=== PATIENT | male | born 1935 | race Caucasian/White ===

== ENCOUNTER → 2017-06-03 | Outpatient (CLI) | payer BC ==
[~2017-06-03] MED LIST: ASPEC81 PO; ATOR10TA88 PO; PARLODEL PO
--- NOTE | 2017-06-04 05:39 | PAP/PSG TECHNICIAN REPORT ---
[facility] Wood Milling Machine Tender Polysomnogram Report Study name: None Report date: 06/04/2017 Study date: 06/03/2017 Referring Physician: Barb Dan PA-C Name: ELZBIETA LIN Interpreting Physician: Ronni Braga D.O. Date of : 1935 Wood Milling Machine Tender: MELISSA Heredia. Sex: Male Age: 82 StudyType: PSG PAP Weight: 213 lbs Height: 82 years, Height 5' 10" Neck Circum:17inches BMI: 30.56 Medications: Ocuvite, ASA 81mg, Atorvastatin Calcium 10mg, Coenzyme Q-10 100mg, Viagra 50mg, Desonide ointment, Nasal cpap 5cm H2O, Naproxen Sodium 220mg, Bromocriptine Mesylate 2.5mg Patient History Study started on room air with 4cwp cpap in room #6. 82 yr old male here tonight for a titration study. He has been on cpap at a setting of 5 for at least 20 years. He uses it faithfully for 8 hours per night. His does not note any snoring or apnea. He is here to check his settings and to see how his oxygen saturation levels are. His ESS=9/24. His neck circ=17inches. Parameters Monitored NPSG: E1-M2, E2-M1, Fp1-M2, Fp2-M1, F3-M2, F4-M2, F4-M1, C3-M2, C4-M2, C4-M1, O1-M2, O2-M2, O2-M1, T3-M2, T4-M1, P3-M2, P4-M1, CHIN1, CHIN2, HR, EKG, Legs, PFLOW, SNOR, FLOW, CFLOW, Tidal Volume, THOR, ABDO, SpO2, PLTH, CPRESS, ETCO2 Wave, ETCO2, pH Sleep Architecture Sleep Stages Time at Lights Off 11:03:47 PM STAGES Time (min.) TST (%) Time at Lights On 5:28:47 AM Wake 62.0 -- Total Recording Time (TRT) 385.00 min. N1 23.5 7 Total Sleep Period (TSP) 369.0 min. N2 229.0 71 Total Sleep Time (TST) 323.0min. N3 20.0 6 Awake Time 62.0 min. REM 50.5 16 Wake after Sleep Onset 46.0 min. Sleep Efficiency (SE) 84 % Sleep Onset Latency (RASTA) 16.0 min. Number of Stage 1 Shifts None Awakenings 19 Stage Changes 106 Number of REM periods 10 REM 50.5 16 REM Latency 59.0 min. NREM 272.5 84 Body Position Analysis Supine Right Left Side Prone Vertical Total Sleep Time (min.) 38.7 224.5 80.0 304.50 0.0 0.0 Total Sleep Time (%) 6% 70% 25% 94 0% N/A% Total Sleep Time REM (min.) 0.0 47.5 3.0 None 0.0 0.0 Total Sleep Time NREM (min.) 18.5 177.0 77.0 None 0.0 0.0 Intermittent Wake (min.) 20.2 22.0 19.8 None 0.0 0.0 Total Sleep Period (%) 8% None None None None None Arousals Myoclonus (PLM) * Events Count Index Events Count Index Spontaneous 17 3 Events Awake (PLMW) 108 104.5 Respiratory 1 0.2 Events Asleep w/ Arousal (PLMA) 23 4.3 PLM 22 4 Events Asleep w/o Arousal (PLMS) 374 69.5 Snoring 1 0 Total Asleep 397 73.7 Total 41 8 Total 505 79 Respiratory Analysis * CA OA MA CH H RERA Total Count 0 0 0 0 3 0 3 Index 0.0 0.0 0.0 0 0.6 0 0.6 Mean Duration 0.0 0.0 0.0 0.00 30.0 0.0 30.0 Longest Duration 0.0 0.0 0.0 0.00 0.0 0.0 37.8 Respiratory Event Summary Total Supine ~Supine Right Left Prone REM NREM Apneas Count 0 0 0 0 0 N/A 0 0 Index 0.0 0 0 0.0 0.0 N/A 0 0 Hypopneas (4% Desat) Count 3 1 2 2 0 N/A 1 2 Index 0.6 3.2 0 0.5 0.0 N/A 1.2 0.4 Apneas & All Hypopneas Count 3 1 2 2 0 N/A 1 2 Index 0.6 3 0 1 0 N/A 1.2 0.4 Respiratory Events (Decision Science Analyst+All Hyp+RERA) Count 3 1 2 2 0 N/A 1 2 Index 0.6 3 0 0.5 0.0 N/A 1.2 0.4 Respiratory Related Arousal Count 1 1 0 0 0 N/A 0 1 Index 0.2 3 0 0 0 N/A 0 0 Snoring Analysis Supine Right Left Prone REM NREM Total Snore duration 1.0 min Snores count 4 17 2 N/A 0 23 23 Snore mean duration 2.6 Sec Snores index 13 5 2 N/A 0.0 5.1 4.3 TST with snoring (%) 0.3% Desaturation Event Summary: Minimum %SpO2 Event Count Mean/Min/Max Duration(sec.) Desaturation Index % Time In Bed > 90 21 37.5 / 12.3 / 60.0 3.3 99.5 86 - 90 1 12.3 / 12.3 / 12.3 28.8 0.5 81 - 85 0 N/A 0.0 0.0 76 - 80 0 N/A 0.0 0.0 71 - 75 0 N/A 0.0 0.0 66 - 70 0 N/A 0.0 0.0 61 - 65 0 N/A 0.0 0.0 56 - 60 0 N/A 0.0 0.0 51 - 55 0 N/A 0.0 0.0 < 50 0 N/A 0.0 0.0 Total REM NREM Awake <50% 0.0 min. 0.0 min. 0.0 min. 0.0 min. 51 - 60% 0.0 min. 0.0 min. 0.0 min. 0.0 min. 61 - 70% 0.0 min. 0.0 min. 0.0 min. 0.0 min. 71 - 80% 0.0 min. 0.0 min. 0.0 min. 0.0 min. 81 - 90% 2.1 min. 0.4 min. 0.7 min. 1.1 min. 91 - 100% 382.8 min. 50.1 min. 271.9 min. 60.8 min. Average 94 93 93 95 Minimum SpO2 89 89 89 89 Desaturation Event Index 3.3 4.8 1.5 9.7 # Desat. Events below 89% N/A N/A N/A N/A Time(%) with Saturation below 89% 0.0 0.0 0.0 0.0 Time(min.) with Saturation below 89% 0.0 0.0 0.0 0.0 Time (mins) REM (mins) NREM (mins) % of TST SpO2 Below 90% 4 1 N3 0.1 SpO2 Below 88% 0 0 0 0 Heart Rate Analysis Min (bpm) Max (bpm) Average (bpm) Awake 49 75 59 NREM 50 71 55 REM 49 64 56 Overall 49 71 55 Supplemental O2 Values Minimum O2 level: None Value Start Time End Time Wood Milling Machine Tender Comments Mr. Lin slept in the left and supine positions. No cardiac arrhythmia noted. Some leg movements were noted. No bruxism noted. CPAP was initiated at +4 CMH2O and up-titrated to an optimal level of +5 CMH2O, which nearly eliminated all respiratory events and snoring. His own Rodriguez FX nasal cushion system by [employer] was used during titration. He did not use the restroom during the night. He stated that he slept about the same as when at home. The final report will be interpreted and signed by a sleep physician. The completed physician report will then be placed in the patient medical record. Therapy Event: Therapy (cm H20) 4 5 Total Time at Pressure (min.) 305.0 80.0 TST at Pressure (min.) 256.0 67.0 # Periods 1 1 Sleep Onset (min.) 16.0 0.0 REM Onset (min.) 75.0 0.0 Sleep Efficiency % 83 83 Wakefulness (%) 16.1 16.2 Wakefulness (min.) 49.0 13.0 NREM 1 (%) 5.6 8.1 NREM 1 (min.) 17.0 6.5 NREM 2 (%) 56.6 70.6 NREM 2 (min.) 172.5 56.5 NREM 3 (%) 6.6 0.0 NREM 3 (min.) 20.0 0.0 REM (%) 15.2 5.0 REM (min.) 46.5 4.0 # Arousals 32 9 Arousal Index 7.5 8.1 # Snore 19 4 Snore Index 4.5 3.6 AHI 0.7 0.0 AHI Supine 7.1 0.0 AHI Non-Supine 0.5 0.0 NREM AHI 0.6 0.0 REM AHI 1.3 0.0 RDI 0.7 0.0 # Obstructive 0 0 # Central Ap 0 0 # Mixed 0 0 # Hypopneas 3 0 RERAS 0 0 Total Respiratory Events 3 0 Time Below SpO2 89.00% (min.) 0.0 0.0 Mean NREM SpO2 (%) 94 93 Mean REM SpO2 (%) 93 94 Mean Sleep SpO2 (%) 94 93 Min NREM SpO2 (%) 90 89 Min REM SpO2 (%) 89 91 Position Supine (min.) 8.5 10.0 Position Non-supine (min.) 247.5 57.0 LM Index Sleep 80.9 46.5 LM Index NREM 89.4 48.6 LM Index REM 42.6 14.8 Mean Heart Rate (bpm) 56 52 Min Heart Rate (bpm) 49 50
--- NOTE | 2017-06-09 12:53 | Sleep Study ---
Sleep Study Report Date of Service: 06/03/2017 Sleep Study Report Clinical data: Patient is an 82-year-old male who has a BMI of 30.56. He is referred by Barb Dan PA-C for a CPAP retitration. The patient has a long history of sleep apnea. He has been on nasal CPAP at 5 centimeters for many years. His [place] score is 9 out of a possible 24. His oil drilling engineer who is treating him for glaucoma suggested perhaps his sleep apnea is suboptimally treated. This is why he is referred back for a CPAP retitration. Sleep architecture: The total sleep period was 369.0 minutes. The total sleep time was 323 minutes. The sleep efficiency was mildly reduced to 84 percent. Sleep latency was normal at 16 minutes. Wake after sleep onset was mildly prolonged to 46 minutes. The REM latency was normal at 59 minutes. Sleep consisted of stage N1 7 percent, stage N2 71 percent, stage N3 6 percent, and stage REM 16 percent. Arousal data: The patient had a total of 41 arousals including 17 spontaneous arousals, 1 respiratory arousal, 22 PLM arousals, and 1 snoring arousal. The arousal index was 8. PLM data: The patient had a total of 397 periodic limb movements of sleep for a PLM index of 73.7. There were 23 arousals associated with limb movements for a PLM arousal index of 4.3. EKG: The underlying cardiac rhythm was normal sinus. The cardiac rates ranged from 49 to 71 beats per minute. The average heart rate was 55 beats per minute. No cardiac arrhythmia was noted. Respiratory data: The patient's respiratory events were treated with nasal CPAP. He had a total of 3 respiratory events for the night, all hypopneas. Hypopneas were scored according to the 4 percent desaturation rule. The mean duration of the hypopneas was 30 seconds. He had no complete apneas. The apnea-hypopnea index for the night was 0.6. The final pressure of 5 centimeters he had 0 respiratory events and his apnea-hypopnea index was 0. Oximetry data: The average saturation for the night was 94 percent. The minimum saturation was 89 percent. Firestopper Technician comments: Patient slept on the left, right, and supine positions no cardiac arrhythmia noted. Leg movements noted. No bruxism noted. CPAP was initiated at 4 centimeters and up titrated to an optimal level of 5 centimeters which nearly eliminated all respiratory events and snoring. The patient used his own [employer] FX nasal cushion by [employer] during the titration. He did not use the restroom during the night. He stated he slept about the same as he does have home. Impressions: 1. Obstructive sleep apnea-resolved with nasal CPAP at 5 centimeters 2. Periodic limb movement disorder Comments: The patient had a CPAP titration study. His final pressure of 5 centimeters as where he was previously set at home. His sleep apnea was totally resolved at that pressure. The sleep efficiency was mildly reduced. Sleep architecture was showing a slight increase in stage N2 but was otherwise normal. Oxygenation was normal. He did have frequent periodic limb movements. Clinical correlation is required to determine if he has restless legs syndrome and if his limb movements cause any significant symptoms. Recommendations: 1. It is advised that the patient continue with his nasal CPAP at 5 centimeters. This seems to be adequately resolving his sleep apnea. 2. Clinical correlation is required to determine if his limb movements may benefit from pharmacologic therapy. 3. The patient has an elevation of body mass index at 30.56. A weight reduction program is advised. Copies To 1: Ronni Braga, ; Barb Dan PAC
== END | disposition home or self-care (01) ==
LOC: C.NEUR 21:00
PROVIDERS: ATTEND Physician Assistant Medical
DX: G47.33 Obstructive sleep apnea (adult) (pediatric) (principal); G47.61 Periodic limb movement disorder

== ENCOUNTER → 2017-07-02 | Outpatient (CLI) | payer BC ==
[2017-07-02 14:30] LABS: ALT/SGPT 22 U/L (12-78); BLOOD UREA NITROGEN 17 mg/dl (7-18); BUN/CREATININE RATIO 16.9 (10-20); CALCIUM 8.9 mg/dl (8.5-10.1); CARBON DIOXIDE 25 mmol/L (21-32); CHLORIDE 109 mmol/L (98-107); CHOLESTEROL 134 mg/dl (0-200); GLUCOSE 94 mg/dl (70-99); POTASSIUM 3.9 mmol/L (3.5-5.1); SODIUM 141 mmol/L (136-145); TRIGLYCERIDES 76 mg/dl (0-150); VERY LOW DENSITY LIPOPROT CALC 15 mg/dl
[2017-07-02 14:39] LABS: ALB/GLOB RATIO 1.2 (0.9-2); ALKALINE PHOSPHATASE 66 U/L (45-117); AST/SGOT 22 U/L (15-37); CHOLESTEROL/HDL RATIO 3.2; FERRITIN 130.1 ng/ml (8.0-388.0); HDL CHOLESTEROL 42 mg/dl; LDL CHOLESTEROL CALCULATED 77 mg/dl; TOTAL IRON BINDING CAPACITY 292 mcg/dl (250-450)
== END | disposition home or self-care (01) ==
LOC: C.LABBC 09:58
PROVIDERS: ATTEND Physician Assistant Medical
DX: Z00.00 Encounter for general adult medical examination without abnormal findings (principal); N40.2 Nodular prostate without lower urinary tract symptoms; G47.61 Periodic limb movement disorder; G47.33 Obstructive sleep apnea (adult) (pediatric); E78.00 Pure hypercholesterolemia, unspecified; D35.2 Benign neoplasm of pituitary gland

== ENCOUNTER → 2018-01-15 | Outpatient (CLI) | payer BC ==
[~2018-01-15] MED LIST changes: +ATOR10TA82 PO; -ATOR10TA88 PO
== END | disposition home or self-care (01) ==
LOC: C.LABBC 10:41
PROVIDERS: ATTEND Urology
DX: C61 Malignant neoplasm of prostate (principal)